=== PATIENT | female | born 1985 | race Asian ===

== ENCOUNTER 2017-06-17 07:20 | Inpatient (IN) | payer SELFPAY ==
[~2017-06-17] VITALS: Ht 168 cm; Wt 84.4 kg
[2017-06-17] MEDS ORDERED: PREN-371 PO (08:43)
[2017-06-17] MEDS ORDERED: NALBUPHINE 10 MG/ML AMP IVP PRN (08:45)
[2017-06-17] MEDS ORDERED: LACTATED RINGERS 1,000 ML IV SCH ×3 (08:52→12:05)
[2017-06-17] MEDS ORDERED: CARBOPROST 250 MCG/ML AMP IM PRN ×2 (08:52→08:55)
[2017-06-17] MEDS ORDERED: OXYTOCIN 10 UNITS/ML VIAL IM SCH ×2 (08:53→08:55)
[2017-06-17] MEDS ORDERED: OXYTOCIN 20 UNITS in LACTATED RINGERS 1,000 ML IV SCH (08:53)
[2017-06-17] MEDS ORDERED: METHYLERGONOVINE 0.2 MG/ML AMP IM PRN ×3 (08:54→16:20)
[2017-06-17] MEDS ORDERED: MISOPROSTOL 25 MCG TAB VG PRN (08:54)
[2017-06-17] MEDS ORDERED: PROMETHAZINE 25 MG/ML VIAL IVP PRN (08:55)
[2017-06-17] MEDS ORDERED: NALBUPHINE HYDROCHLORIDE 10 MG/ML VIAL IVP PRN (08:55)
--- NOTE | 2017-06-17 09:50 | NUR ---
PATIENT HAS BEEN SCREENED AND CATEGORIZED LOW NUTRITION RISK. PATIENT WILL BE SEEN WITHIN 7 DAYS OF ADMISSION. 06/23/[address]
[2017-06-17 10:54] LABS: ANION GAP 10.3 (8-16); CARBON DIOXIDE 25.3 mmol/L (21-32); CREATININE 0.6 mg/dL (0.6-1.3); POTASSIUM 3.6 mmol/L (3.5-5.1)
[2017-06-17] MEDS ORDERED: ROPIVACAINE 0.2%/NS PREMIX 250 ML EPI ONE (10:54)
[2017-06-17 10:58] LABS: HEMATOCRIT 34.7 % (36-48); HEMOGLOBIN 12.1 g/dL (12.0-16.0); MEAN CORPUSCULAR HEMOGLOBIN 33 pg (27-31); MEAN CORPUSCULAR HGB CONC 35 g/dL (33-37); MEAN CORPUSCULAR VOLUME 96 fL (80-94); RED BLOOD CELL COUNT(AUTO) 3.63 MIL/uL (4.20-5.40); WHITE BLOOD COUNT (AUTO) 6.1 K/uL (4.8-10.8)
[2017-06-17 10:59] LABS: EOSINOPHILS % (AUTO) 0.5 % (0.0-4.0); NEUTROPHILS % (AUTO) 62.7 % (42.2-75.2); PLATELET COUNT (AUTO) 127 K/uL (140-450)
[2017-06-17 11:00] LABS: ALBUMIN 2.2 g/dL (3.4-5.0); BASOPHILS % (AUTO) 0.3 % (0.0-2.0); LYMPHOCYTES # (AUTO) 1.6 K/uL (2.5-16.5); LYMPHOCYTES % (AUTO) 25.6 % (20.5-51.1); MONOCYTES # (AUTO) 0.7 K/uL (0.8-1.0); MONOCYTES % (AUTO) 10.9 % (1.7-9.3); NEUTROPHILS # (AUTO) 3.8 K/uL (1.8-7.7); TOTAL BILIRUBIN 0.2 mg/dL (0.0-1.0)
[2017-06-17 11:12] LABS: APPEARANCE,URINE CLEAR (CLEAR); BILIRUBIN,URINE NEGATIVE (NEGATIVE); BLOOD, URINE 1+ (NEGATIVE); COLOR,URINE YELLOW (YELLOW); LEUKOCYTE ESTERASE ,URINE NEGATIVE (NEGATIVE); NITRITE, URINE NEGATIVE (NEGATIVE); UGLUCOSE NEGATIVE (NEGATIVE)
[2017-06-17 11:26] LABS: RBC,URINE NONE SEEN /HPF (0-5); WBC,URINE 0-5 (RARE) /HPF (0-5)
[2017-06-17] MEDS ORDERED: OXYTOCIN 10 UNITS/ML VIAL ONE ×2 (12:38→17:20)
[2017-06-17] MEDS ORDERED: SODIUM PHOSPHATE 118 ML ENEM RC PRN (16:20)
[2017-06-17] MEDS ORDERED: HYDROcodone/APAP 5/325 MG 1 TAB TAB PO PRN (16:20)
[2017-06-17] MEDS ORDERED: TEMAZEPAM 15 MG CAP PO PRN (16:20)
[2017-06-17] MEDS ORDERED: MEASLES, MUMPS, AND RUBELLA 1 VIAL SQVAC PRN (16:20)
[2017-06-17] MEDS ORDERED: BENZOCAINE/MENTHOL 20%-0.5% 60 GM CAN TP PRN (16:20)
[2017-06-17] MEDS ORDERED: DOCUSATE SOD/SENNA 50/8.6 MG 1 TAB PO SCH (21:00)
[2017-06-18] MEDS: oxyCODONE/APAP 5/325 MG 1 TAB TAB PO PRN ×2 (04:47→23:03)
[2017-06-18 05:58] LABS: HEMATOCRIT 35.3 % (36-48)
== END 2017-06-19 16:15 | disposition home or self-care (01) | DRG 775 ==
LOC: MLD 07:20 → MFCC 18:30
PROVIDERS: ADMIT Obstetrics & Gynecology; ATTEND Obstetrics & Gynecology
PROC: 10E0XZZ Delivery of Products of Conception, External Approach (ICD-10-PCS; principal; 2017-06-17)
PROC: 0W8NXZZ Division of Female Perineum, External Approach (ICD-10-PCS; 2017-06-17)
PROC: 00HU33Z Insertion of Infusion Device into Spinal Canal, Percutaneous Approach (ICD-10-PCS; 2017-06-17)
PROC: 3E0R3BZ Introduction of Anesthetic Agent into Spinal Canal, Percutaneous Approach (ICD-10-PCS; 2017-06-17)
PROC: 3E0234Z Introduction of Serum, Toxoid and Vaccine into Muscle, Percutaneous Approach (ICD-10-PCS; 2017-06-18)
PROC: 3E0234Z Introduction of Serum, Toxoid and Vaccine into Muscle, Percutaneous Approach (ICD-10-PCS; 2017-06-18)
DX: O32.1XX0 Maternal care for breech presentation, not applicable or unspecified (principal); E03.9 Hypothyroidism, unspecified; O99.284 Endocrine, nutritional and metabolic diseases complicating childbirth; Z23 Encounter for immunization; Z37.0 Single live birth; Z3A.38 38 weeks gestation of pregnancy; Z82.49 Family history of ischemic heart disease and other diseases of the circulatory system
CPT/HCPCS: 36415; 51702; 59409; 80053; 81001; 85018; 85025; 86592; 86886; 86900; 86901; 90707; 90715; J2590; J2795; J7120